=== PATIENT | female | born 1945 | race Caucasian/White ===

== ENCOUNTER 2024-01-02 12:45 | Inpatient (IN) | payer BC ==
[~2024-01-02] VITALS: Ht 157.5 cm; Wt 88.5 kg
[2024-01-02 12:45] VITALS: BP_SYST 153; PULSE 90; RESP 19; TEMP 97.2; O2SAT 97
[~2024-01-02 12:45] MED LIST: ALBU2.5V7 INH; BACL10TA PO; BECL8.7A6 INH; DILT120C21 PO; ESCI20TA PO; FAMO40TA7 PO; LORA2TAB95 PO; LOSA-415 PO; MONT-40 PO; OXYB10TA4 PO; POTA10TA15 PO; SIMV-43 PO; TEMA15CA5 PO
[2024-01-02 14:11] LABS: BASOPHILS # (AUTO) 0.1 K/uL (0.0-0.2); BASOPHILS % (AUTO) 0.7 % (0.0-2.0); EOSINOPHILS # (AUTO) 0.8 K/uL (0.0-0.4); EOSINOPHILS % (AUTO) 6.5 % (0.0-4.0); HEMATOCRIT 37.9 % (36-48); HEMOGLOBIN 12.8 g/dL (12.0-16.0); LYMPHOCYTES # (AUTO) 3.4 K/uL (1.0-5.5); LYMPHOCYTES % (AUTO) 26.4 % (20.5-51.5); MEAN CORPUSCULAR HEMOGLOBIN 28 pg (27-31); MEAN CORPUSCULAR HGB CONC 34 % (32-36); MEAN CORPUSCULAR VOLUME 84 fL (79.0-98.0); MONOCYTES # (AUTO) 1.3 K/uL (0.0-1.0); MONOCYTES % (AUTO) 10.2 % (1.7-9.3); NEUTROPHILS # (AUTO) 7.3 K/uL (1.8-7.7); NEUTROPHILS % (AUTO) 56.2 % (40.0-70.0); PLATELET COUNT (AUTO) 225 K/uL (130-430); RED BLOOD CELL COUNT(AUTO) 4.53 MIL/uL (4.2-6.2); RED CELL DISTRIBUTION WIDTH 14.8 % (9.0-15.0)
[2024-01-02 14:18] LABS: ANION GAP 15 (5-15); CARBON DIOXIDE 18 mmol/L (23-29); CHLORIDE 109 mmol/L (98-107); GLUCOSE 111 mg/dL (74-106); POTASSIUM 3.8 mmol/L (3.5-5.1); SODIUM SERUM 142 mmol/L (136-145); UREA NITROGEN, BLOOD 28 mg/dL (8-21)
[2024-01-02 14:24] LABS: ALANINE AMINOTRANSFERASE 45 U/L (12-78); ALBUMIN 3.3 g/dL (3.4-4.8); ASPARTATE AMINOTRANSFERASE 47 U/L (10-37); SALICYLATE 3 mg/dL (3-30); TOTAL BILIRUBIN 0.7 mg/dL (0.0-1.0); TOTAL PROTEIN, SERUM 6.4 g/dL (6.4-8.3)
[2024-01-02 14:29] LABS: ACETAMINOPHEN < 1 ug/mL (1-30); ALCOHOL, BLOOD < 3 mg/dL (<10)
[2024-01-02 15:17] LABS: BILIRUBIN,URINE NEGATIVE (NEGATIVE); CLARITY/URINE SL CLOUDY (CLEAR); COLOR,URINE YELLOW (YELLOW); GLUCOSE,URINE NEGATIVE (NEGATIVE); KETONES,URINE TRACE (NEGATIVE); LEUKOCYTE ESTERASE ,URINE TRACE (NEGATIVE); NITRITE, URINE NEGATIVE (NEGATIVE); PROTEIN URINE TRACE (NEGATIVE); UROBILINOGEN,URINE 0.2 (0.2-1.0)
[2024-01-02 15:47] LABS: BLOOD, URINE TRACE (NEGATIVE)
[2024-01-02 16:04] LABS: BARBITURATE, URINE NEGATIVE (NEG <=200); BENZODIAZEPINE, URINE NEGATIVE (NEG <=150); CANNABINOID, URINE NEGATIVE (NEG <=50); COCAINE, URINE NEGATIVE (NEG <=150); METHAMPHETAMINES SCREEN,URINE POSITIVE (NEG <=500); OPIATE, URINE NEGATIVE (NEG <=100); PHENCYCLIDINE SCREEN,URINE NEGATIVE (NEG <=25); URINE AMPHETAMINE POSITIVE (NEG <=500); URINE METHADONE NEGATIVE (NEG <=200); URINE OXYCODONE SCREEN NEGATIVE (NEG <=100)
[2024-01-02 16:05] LABS: UR TRICYCLIC ANTIDEPRESSANTS NEGATIVE (NEG <=300)
[2024-01-02 16:26] LABS: BACTERIA,URINE MANY /HPF (None Seen); RBC,URINE 0-3 /HPF (0-3); WBC,URINE 20-50 /HPF (0-3)
[2024-01-02 16:27] LABS: MUCUS,URINE None Seen /LPF (None Seen)
[2024-01-02 17:15] VITALS: BP_SYST 139; PULSE 60; RESP 18; TEMP 98; O2SAT 97
[2024-01-02 17:53] VITALS: BP_SYST 139; PULSE 60; RESP 20; TEMP 98; O2SAT 98
[2024-01-02] MEDS ORDERED: NITR50CA PO (19:24)
[2024-01-02] MEDS ORDERED: AZIL80TA PO (19:24)
[2024-01-02] MEDS ORDERED: CIPR250T4 PO (19:24)
[2024-01-02] MEDS ORDERED: BACL20TA PO (19:24)
[2024-01-02] MEDS ORDERED: DILT240C91 PO (19:24)
[2024-01-02] MEDS ORDERED: CLOP75TA32 PO (19:24)
[2024-01-02] MEDS ORDERED: METF-834 PO (19:24)
[2024-01-02] MEDS ORDERED: ROSU20TA73 PO (19:24)
[2024-01-02] MEDS ORDERED: HYDR-2923 PO (19:24)
[2024-01-02] MEDS ORDERED: METH1TAB35 PO (19:24)
[2024-01-02] MEDS ORDERED: VIBE75TA PO (19:24)
[2024-01-02 20:00] VITALS: BP_SYST 131; PULSE 90; RESP 16; TEMP 97.9; O2SAT 96
[2024-01-02] MEDS ORDERED: LORazepam 1 MG TABLET PO PRN (23:15)
[2024-01-02] MEDS ORDERED: HYDROcodone/ACETAMIN 5-325 MG TAB (NORCO/ VICODIN) PO PRN (23:30)
[2024-01-02] MEDS ORDERED: NALOXONE HCL 0.4 MG/ML AMP (NARCAN) IVP PRN ×2 (23:30)
[2024-01-02] MEDS ORDERED: ONDANSETRON HCL 4 MG/2 ML VIAL IVP PRN (23:30)
[2024-01-02] MEDS ORDERED: ACETAMINOPHEN 325 MG TABLET PO PRN (23:30)
[2024-01-02] MEDS ORDERED: HYDROcodone/ACETAMIN 10-325 MG TAB PO PRN (23:30)
[2024-01-03 00:17] VITALS: BP_SYST 138; PULSE 88; RESP 16; TEMP 98.2; O2SAT 94
[2024-01-03] MEDS: NORMAL SALINE 5 ML DISP.SYRIN IVF SCH (06:41)
[2024-01-03 07:00] LABS: BASOPHILS # (AUTO) 0.1 K/uL (0.0-0.2); BASOPHILS % (AUTO) 0.7 % (0.0-2.0); EOSINOPHILS # (AUTO) 0.7 K/uL (0.0-0.4); EOSINOPHILS % (AUTO) 8.8 % (0.0-4.0); HEMATOCRIT 38.9 % (36-48); LYMPHOCYTES # (AUTO) 2.1 K/uL (1.0-5.5); LYMPHOCYTES % (AUTO) 26.6 % (20.5-51.5); MEAN CORPUSCULAR HEMOGLOBIN 28 pg (27-31); MEAN CORPUSCULAR HGB CONC 33 % (32-36); MEAN CORPUSCULAR VOLUME 85 fL (79.0-98.0); MONOCYTES # (AUTO) 0.8 K/uL (0.0-1.0); MONOCYTES % (AUTO) 9.8 % (1.7-9.3); NEUTROPHILS # (AUTO) 4.2 K/uL (1.8-7.7); NEUTROPHILS % (AUTO) 54.1 % (40.0-70.0); PLATELET COUNT (AUTO) 209 K/uL (130-430); RED BLOOD CELL COUNT(AUTO) 4.59 MIL/uL (4.2-6.2); RED CELL DISTRIBUTION WIDTH 14.6 % (9.0-15.0); WHITE BLOOD COUNT (AUTO) 7.7 K/uL (4.8-10.8)
[2024-01-03 07:15] LABS: ALANINE AMINOTRANSFERASE 40 U/L (12-78); ALBUMIN 2.9 g/dL (3.4-4.8); ANION GAP 11 (5-15); ASPARTATE AMINOTRANSFERASE 34 U/L (10-37); CALCIUM 8.9 mg/dL (8.4-11.0); CARBON DIOXIDE 21 mmol/L (23-29); CHLORIDE 111 mmol/L (98-107); CREATININE 1.06 mg/dL (0.55-1.30); GLUCOSE 153 mg/dL (74-106); POTASSIUM 3.8 mmol/L (3.5-5.1); SODIUM SERUM 143 mmol/L (136-145); TOTAL BILIRUBIN 0.5 mg/dL (0.0-1.0); UREA NITROGEN, BLOOD 28 mg/dL (8-21)
[2024-01-03] MEDS ORDERED: METF-379 PO (07:22)
[2024-01-03] MEDS: DILTIAZEM HCL 120 MG CAP.SR.24H PO SCH (08:57)
[2024-01-03] MEDS: FAMOTIDINE 20 MG TABLET PO SCH (08:58)
[2024-01-03] MEDS: metFORMIN HCL 500 MG TABLET PO SCH (08:58)
[2024-01-03] MEDS: CLOPIDOGREL BISULFATE 75 MG TABLET PO SCH (08:58)
[2024-01-03] MEDS: POTASSIUM CHLORIDE 10 MEQ TABLET.ER PO SCH (08:59)
[2024-01-03] MEDS: LOSARTAN POTASSIUM 50 MG TABLET (COZAAR) PO SCH (08:59)
[2024-01-03] MEDS: hydrALAZINE HCL 10 MG TABLET PO SCH (09:00)
[2024-01-03] MEDS ORDERED: ESCITALOPRAM OXALATE 10 MG TABLET PO SCH (09:00)
[2024-01-03] MEDS ORDERED: SIMVASTATIN 20 MG TABLET PO SCH (09:00)
[2024-01-03] MEDS ORDERED: NON-FORMULARY MEDICATION (Methenamine Hippurate 1 TAB) PO SCH (09:00)
[2024-01-03] MEDS ORDERED: OXYBUTYNIN CHLORIDE 5 MG XL TAB PO SCH (09:00)
[2024-01-03] MEDS ORDERED: AZILSARTAN MEDOXOMIL 80 MG PO SCH (09:00)
[2024-01-03] MEDS: CITALOPRAM HYDROBROMIDE 20 MG TABLET PO SCH (09:53)
[2024-01-03] MEDS: oxyBUTYnin chloride 5 MG TABLET PO SCH (09:53)
[2024-01-03 11:42] VITALS: BP_SYST 130; PULSE 90; RESP 17; TEMP 97.3; O2SAT 94
[2024-01-03 12:00] VITALS: BP_SYST 132; PULSE 76; RESP 18; TEMP 97.6; O2SAT 97
[2024-01-03] MEDS: cefTRIAXone 1 GM in D5W 50 ML IV SCH (12:53)
[2024-01-03] MEDS ORDERED: POTA8TAB66 PO (14:44)
[2024-01-03] MEDS ORDERED: FLUT1BLS PO (14:47)
[2024-01-03 16:12] VITALS: BP_SYST 122; PULSE 84; RESP 17; TEMP 97.9; O2SAT 94
[2024-01-03] MEDS: MONTELUKAST 10 MG TABLET PO SCH (18:39)
[2024-01-03 20:00] VITALS: BP_SYST 119; PULSE 76; RESP 20; TEMP 98.2; O2SAT 97
[2024-01-03 20:17] VITALS: O2SAT 99
[2024-01-03] MEDS ORDERED: ROSUVASTATIN CALCIUM 5 MG/TAB (CRESTOR) PO SCH (21:00)
[2024-01-03] MEDS: BACLOFEN 10 MG TABLET PO SCH (22:22)
[2024-01-03] MEDS: TEMAZEPAM 15 MG CAPSULE PO SCH (22:22)
[2024-01-04] VITALS: BP_SYST 122; PULSE 77; RESP 17; TEMP 98.2; O2SAT 98
[2024-01-04 06:28] LABS: BASOPHILS # (AUTO) 0.1 K/uL (0.0-0.2); BASOPHILS % (AUTO) 0.9 % (0.0-2.0); EOSINOPHILS # (AUTO) 0.6 K/uL (0.0-0.4); EOSINOPHILS % (AUTO) 7.9 % (0.0-4.0); HEMOGLOBIN 12.9 g/dL (12.0-16.0); LYMPHOCYTES # (AUTO) 2.5 K/uL (1.0-5.5); LYMPHOCYTES % (AUTO) 30.6 % (20.5-51.5); MEAN CORPUSCULAR HEMOGLOBIN 28 pg (27-31); MEAN CORPUSCULAR HGB CONC 34 % (32-36); MEAN CORPUSCULAR VOLUME 84 fL (79.0-98.0); MONOCYTES # (AUTO) 0.7 K/uL (0.0-1.0); MONOCYTES % (AUTO) 9.1 % (1.7-9.3); NEUTROPHILS # (AUTO) 4.1 K/uL (1.8-7.7); NEUTROPHILS % (AUTO) 51.5 % (40.0-70.0); PLATELET COUNT (AUTO) 203 K/uL (130-430); RED BLOOD CELL COUNT(AUTO) 4.55 MIL/uL (4.2-6.2)
[2024-01-04 06:56] LABS: ANION GAP 11 (5-15); CARBON DIOXIDE 21 mmol/L (23-29); CHLORIDE 109 mmol/L (98-107); CREATININE 0.99 mg/dL (0.55-1.30); GLUCOSE 101 mg/dL (74-106); POTASSIUM 3.9 mmol/L (3.5-5.1); SODIUM SERUM 141 mmol/L (136-145); UREA NITROGEN, BLOOD 29 mg/dL (8-21)
[2024-01-04 08:00] VITALS: BP_SYST 138; PULSE 89; RESP 18; TEMP 98.6; O2SAT 96; O2SAT 97
[2024-01-04 08:42] LABS: ERYTHROCYTE SEDIMENTATION RATE 15 MM/HR (0-20)
[2024-01-04] MEDS: METHENAMINE HIPPURATE 1 GM PO SCH (09:00)
[2024-01-04] MEDS: ATORVASTATIN 20 MG TABLET PO SCH (09:55)
[2024-01-04 12:00] VITALS: BP_SYST 145; PULSE 94; RESP 18; TEMP 97.8; O2SAT 96
[2024-01-04 16:00] VITALS: BP_SYST 124; PULSE 84; RESP 18; TEMP 97.7; O2SAT 99
[2024-01-04 20:48] VITALS: O2SAT 97
[2024-01-05 00:31] VITALS: BP_SYST 126; PULSE 81; RESP 17; TEMP 98; O2SAT 96
[2024-01-05 07:23] LABS: BASOPHILS # (AUTO) 0.1 K/uL (0.0-0.2); BASOPHILS % (AUTO) 0.9 % (0.0-2.0); EOSINOPHILS # (AUTO) 0.4 K/uL (0.0-0.4); EOSINOPHILS % (AUTO) 6.1 % (0.0-4.0); HEMATOCRIT 40.1 % (36-48); HEMOGLOBIN 13.6 g/dL (12.0-16.0); LYMPHOCYTES # (AUTO) 2.6 K/uL (1.0-5.5); LYMPHOCYTES % (AUTO) 39.1 % (20.5-51.5); MEAN CORPUSCULAR HEMOGLOBIN 29 pg (27-31); MEAN CORPUSCULAR HGB CONC 34 % (32-36); MEAN CORPUSCULAR VOLUME 84 fL (79.0-98.0); MONOCYTES # (AUTO) 0.6 K/uL (0.0-1.0); MONOCYTES % (AUTO) 9.3 % (1.7-9.3); NEUTROPHILS # (AUTO) 2.9 K/uL (1.8-7.7); NEUTROPHILS % (AUTO) 44.6 % (40.0-70.0); PLATELET COUNT (AUTO) 222 K/uL (130-430); RED BLOOD CELL COUNT(AUTO) 4.77 MIL/uL (4.2-6.2); RED CELL DISTRIBUTION WIDTH 14.8 % (9.0-15.0); WHITE BLOOD COUNT (AUTO) 6.6 K/uL (4.8-10.8)
[2024-01-05 07:45] LABS: ANION GAP 13 (5-15); CALCIUM 9.2 mg/dL (8.4-11.0); CARBON DIOXIDE 21 mmol/L (23-29); CHLORIDE 110 mmol/L (98-107); CREATININE 0.99 mg/dL (0.55-1.30); GLUCOSE 115 mg/dL (74-106); POTASSIUM 4.1 mmol/L (3.5-5.1); SODIUM SERUM 144 mmol/L (136-145); UREA NITROGEN, BLOOD 24 mg/dL (8-21)
[2024-01-05 07:56] LABS: ERYTHROCYTE SEDIMENTATION RATE 17 MM/HR (0-20)
[2024-01-05 08:00] VITALS: O2SAT 99
[2024-01-05 08:05] VITALS: BP_SYST 123; PULSE 82; RESP 16; TEMP 98; O2SAT 96
[2024-01-05] MEDS: cefuroxime axetiL 250 MG TABLET PO SCH (10:07)
[2024-01-05] MEDS: POTASSIUM CHLORIDE 8 MEQ TABLET.ER PO SCH (10:11)
[2024-01-05] MEDS ORDERED: CEFU250T85 PO (10:56)
[2024-01-05 12:51] VITALS: BP_SYST 127; PULSE 74; RESP 18; TEMP 98; O2SAT 99
== END 2024-01-05 13:00 | disposition home health service (06) | DRG 871 ==
LOC: SED 12:45 → SMU 14:52
PROVIDERS: ADMIT Preventive Medicine Preventive Medicine/Occupational Environmental Medicine; ATTEND Preventive Medicine Preventive Medicine/Occupational Environmental Medicine
DX: A41.9 Sepsis, unspecified organism (principal); G93.41 Metabolic encephalopathy; N39.0 Urinary tract infection, site not specified; I10 Essential (primary) hypertension; E78.5 Hyperlipidemia, unspecified; J44.9 Chronic obstructive pulmonary disease, unspecified; B96.20 Unspecified Escherichia coli [E. coli] as the cause of diseases classified elsewhere; J45.909 Unspecified asthma, uncomplicated; E88.09 Other disorders of plasma-protein metabolism, not elsewhere classified; F15.90 Other stimulant use, unspecified, uncomplicated; R73.9 Hyperglycemia, unspecified; Z86.73 Personal history of transient ischemic attack (TIA), and cerebral infarction without residual deficits; Z79.899 Other long term (current) drug therapy
CPT/HCPCS: 36415; 70450-TC; 80048; 80053; 80307; 81000; 81001; 81015; 82140; 82948; 84484; 85025; 85651; 87086; 87186; 97110-GP; 97116-GP; 97163-GP; 97530-GP; 99285; G0480; G0481; G0482; J0696; J7060